=== PATIENT | male | born 2000 | race Asian ===

== ENCOUNTER 2018-03-15 12:57 | Outpatient (AMBR) | payer MEDICAID, SELFPAY ==
--- NOTE | 2018-02-05 14:26 | ST.ODAYNRPT ---
Office Procedures ST Evals/Treatments Date of Service ST Date of Service: 02/05/[address] Speech Therapy Individual: Yes ST Outpatient Daily Note OP Daily Note Pediatric or Adult Patient: Pediatric PT =< 13 Visit Reasons: speech Outpatient Speech Therapy Treatment Date: 02/05/18 Subjective: Orlando arrived with parent and sisters. Objective: Orlando will express/ describe familiar items from weather category with 3-5 word phrases. Mod A 75% acc ST Start of Care Date: 08/16/17 Short term goals/Tx given Orlando will improve expressive labeling of home items with 50% acc MET [place] will learn 2 carrier phrases 50% acc Parent will carry over skills learned to be practiced in the home 100% acc Treatment of Speech/Language Orlando had could recall of vocab. of weather concepts. He was able to repeat phrases for describing the items presented for improving MLU. HEP sent home for Orlando and mom to work on together. Cont ST POC Other Orlando has Graduated form High School. Treatment Time Treatment Time (minutes): 30 minutes
--- NOTE | 2018-02-08 13:43 | ST.ODAYNRPT ---
Office Procedures ST Evals/Treatments Date of Service ST Date of Service: 02/05/[address] Speech Therapy Individual: Yes ST Evals/Treatments Date of Service ST Date of Service: 02/08/[address] Speech Therapy Individual: Yes ST Outpatient Daily Note OP Daily Note Pediatric or Adult Patient: Pediatric PT =< 13 Visit Reasons: speech Outpatient Speech Therapy Treatment Date: 02/08/18 Subjective: Orlando arrived with his parent and sisters. He had his hwk. Objective: Orlando will id and label items relating to land, cory and weather 80% acc Today Mod A Orlando will review transportation items and select the appropriate vehicle from description 90% acc Today min A Orlando will understand calendar concepts and express details on a regular calendar 50% acc Today Mod A ST Start of Care Date: 08/16/17 Short term goals/Tx given [place] will improve expressive labeling of home items with 50% acc MET Orlando will learn 2 carrier phrases 50% acc Parent will carry over skills learned to be practiced in the home 100% acc Treatment of Speech/Language Orlando was given stimulus items familiar to him for eliciting Simple complete sentences. Orlando is at mod A for use of carrier phrase to answer questions with MLU of +5.[address]. [address] POC for improving communication. Treatment Time Treatment Time (minutes): 30 minutes
--- NOTE | 2018-02-12 16:08 | ST.ODAYNRPT ---
Office Procedures ST Evals/Treatments Date of Service ST Date of Service: 02/12/[address] Speech Therapy Individual: Yes ST Evals/Treatments Date of Service ST Date of Service: 02/05/[address] Speech Therapy Individual: Yes ST Evals/Treatments Date of Service ST Date of Service: 02/08/[address] Speech Therapy Individual: Yes ST Outpatient Daily Note OP Daily Note Pediatric or Adult Patient: Pediatric PT =< 13 Visit Reasons: speech Outpatient Speech Therapy Treatment Date: 02/12/18 Subjective: Orlando arrived with mom and hwk. Objective: Orlando will use a calendar for orientation skills and describing special days in the year 50% acc progressing . ST Start of Care Date: 08/16/17 Short term goals/Tx given [place] will improve expressive labeling of home items with 50% acc MET Orlando will learn 2 carrier phrases 50% acc Parent will carry over skills learned to be practiced in the home 100% acc Treatment of Speech/Language Orlando was cued to use calendar month vocab to describe yearly activities in complete sentences with carrier phrase In the month of... Orlando mom discussed issues with Orlando. Parent was given instruction for completing calendar work. Treatment Time Treatment Time (minutes): 30 minutes
--- NOTE | 2018-02-19 13:50 | ST.ODAYNRPT ---
Office Procedures ST Evals/Treatments Date of Service ST Date of Service: 02/12/[address] Speech Therapy Individual: Yes ST Evals/Treatments Date of Service ST Date of Service: 02/19/[address] Speech Therapy Individual: Yes ST Evals/Treatments Date of Service ST Date of Service: 02/05/[address] Speech Therapy Individual: Yes ST Evals/Treatments Date of Service ST Date of Service: 02/08/[address] Speech Therapy Individual: Yes ST Outpatient Daily Note OP Daily Note Pediatric or Adult Patient: Pediatric PT =< 13 Visit Reasons: speech Outpatient Speech Therapy Treatment Date: 02/19/18 Subjective: Orlando arrived with mother. Objective: Orlando will learn temporal concepts with use of 12 month current year calendar 50% acc ST Start of Care Date: 08/16/17 Short term goals/Tx given [place] will improve expressive labeling of home items with 50% acc MET [place] will learn 2 carrier phrases 50% acc Parent will carry over skills learned to be practiced in the home 100% acc Treatment of Speech/Language Orlando was given instruction with 12 month calendar. He was able to id his BD but not year. He was cued for current year and next year. He was able to id today's date. Important dates in the upcoming calendar months were id with Orlando. Orlando was given HEP for the calendar use at home. Cont ST POC for improving expressive communication. Treatment Time Treatment Time (minutes): 30 minutes
--- NOTE | 2018-03-15 13:38 | ST.ODAYNRPT ---
Office Procedures ST Evals/Treatments Date of Service ST Date of Service: 02/12/[address] Speech Therapy Individual: Yes ST Evals/Treatments Date of Service ST Date of Service: 02/19/[address] Speech Therapy Individual: Yes ST Evals/Treatments Date of Service ST Date of Service: 03/15/[address] Speech Therapy Individual: Yes ST Evals/Treatments Date of Service ST Date of Service: 02/05/[address] Speech Therapy Individual: Yes ST Evals/Treatments Date of Service ST Date of Service: 02/08/[address] Speech Therapy Individual: Yes ST Outpatient Daily Note OP Daily Note Pediatric or Adult Patient: Pediatric PT =< 13 Visit Reasons: speech Outpatient Speech Therapy Treatment Date: 03/15/18 Subjective: Olrando arrived with his mother and hwk folder. Objective: Orlando will answer y/n temporal orientation tasks for calendar, time of day, meal time 50% acc Met 50% acc Parent trng for carry over of training Orlando to express temporal concepts Progressing ST Start of Care Date: 08/16/17 Short term goals/Tx given [place] will improve expressive labeling of home items with 50% acc MET [place] will learn 2 carrier phrases 50% acc Parent will carry over skills learned to be practiced in the home 100% acc Treatment of Speech/Language Orlando is making gains for using expressive language to describe temporal concepts with mod A. Cont ST POC for improving his communication. Treatment Time Treatment Time (minutes): 30 minutes
== END 2018-03-15 23:59 | disposition home or self-care (01) ==
PROVIDERS: PCP Family Medicine; Referring Provider Family Medicine; Visit Provider Speech-Language Pathologist
DX: F80.9 Developmental disorder of speech and language, unspecified (principal)
CPT/HCPCS: 92507